=== PATIENT | male | born 1995 | race Caucasian/White ===

== ENCOUNTER 2016-06-21 14:08 | Emergency (ER) | payer OTHER ==
[~2016-06-21] VITALS: Ht 162.6 cm; Wt 74.8 kg
[2016-06-21 14:18] VITALS: BP 157/84
--- NOTE | 2016-06-21 14:19 | NUR ---
Patient ambulated to bed 4. RN evaluating patient at bedside.
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
--- NOTE | 2016-06-21 14:21 | NUR ---
DR C[place] EVALUATING PT AT BEDSIDE
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
--- NOTE | 2016-06-21 16:15 | NUR ---
[place] [employer] at bedside.
[2016-06-21] MEDS ORDERED: BACITRACIN OINT 500 UNITS/GM PKT TP ONE (16:44)
[2016-06-21 16:57] VITALS: BP 132/81
--- NOTE | 2016-06-21 16:57 | NUR ---
Patient discharged with v/s stable. Written and verbal after care instructions given and explained. Patient alert, oriented and verbalized understanding of instructions. Carried with to car. All questions addressed prior to discharge. ID band removed. Patient advised to follow up with PMD. Rx of TYLENOL 325MG TAB given. Patient educated on indication of medication including possible reaction and side effects. Opportunity to ask questions provided and answered.
== END 2016-06-21 16:57 | disposition home or self-care (01) ==
LOC: MED 14:08
DX: S31.131A Puncture wound of abdominal wall without foreign body, left upper quadrant without penetration into peritoneal cavity, initial encounter (principal); Y08.89XA Assault by other specified means, initial encounter; Y93.89 Activity, other specified; Y92.89 Other specified places as the place of occurrence of the external cause; Y99.8 Other external cause status